=== PATIENT | male | born 1965 | race Caucasian/White ===

== ENCOUNTER 2024-02-09 09:19 | Outpatient (CLI) | payer MEDICARE, SELFPAY ==
--- NOTE | ~2024-02-09 | XR_ITS ---
XR shoulder LT min 2V Ordering provider: Juan Pablo Land APRN History: . M25.512 - Pain in left shoulder X 5+ YRS . Comparison: None. FINDINGS: BONES: No acute fracture or dislocation. The physis seen in the inferior glenohumeral. JOINT SPACES: The acromioclavicular joint is normal. The glenohumeral joint shows osteoarthritic tran ges. SOFT TISSUES: Normal. IMPRESSION: No acute osseous abnormality left shoulder. Severe osteoarthritic changes severe osteoarthritic changes of the glenohumeral joint. Reviewed, dictated and finalized at location A.
== END 2024-02-09 09:20 | disposition home or self-care (01) ==
PROVIDERS: PCP Nurse Practitioner; Visit Provider Nurse Practitioner
DX: M25.512 Pain in left shoulder (principal); M19.012 Primary osteoarthritis, left shoulder
CPT/HCPCS: 73030

== ENCOUNTER 2024-02-16 09:36 | Outpatient (CLI) | payer MEDICARE, SELFPAY ==
--- NOTE | ~2024-02-16 | CT_ITS ---
CT brain wo con Ordering provider: Juan Pablo Land APRN History: 59 years Male with . R56.9 - Unspecified convulsions . Comparison: None. Technique: CT of the head without contrast. Radiation reduction technique utilized.The dose-length product was 681mGy. FINDINGS: BRAIN PARENCHYMA AND CSF SPACES: Hypodensity seen in the anterior limb of the right internal capsule extending to the external capsule which is most likely chronic. Further evaluation with MRI is advis ed.. Encephalomalacia in the left frontal/parietal area most likely postoperative. Lacunar infarcts i n the basal ganglia most likely chronic No midline shift, mass effect or hemorrhage. The brain paren chyma and CSF spaces are otherwise normal. VISUALIZED PARANASAL SINUSES: Well aerated. MASTOIDS: Well aerated. BONES: Postoperative changes in the left parietal bone otherwise., The bones appear intact. SOFT TISSUES: Visualized nasopharynx is normal. Superficial soft tissues are normal. IMPRESSION: No acute intracranial findings. Left frontoparietal encephalomalacia likely postoperative. Hypodensity in the right anterior internal capsule extending to the external capsule most likely tenant coordinator sophy. Reviewed, dictated and finalized at location A. IMPRESSION: No acute intracranial findings. Left frontoparietal encephalomalacia likely postoperative. Hypodensity in the right anterior internal capsule extending to the external ca psule most likely chronic.
== END 2024-02-16 09:37 | disposition home or self-care (01) ==
PROVIDERS: PCP Nurse Practitioner; Visit Provider Nurse Practitioner
DX: R56.9 Unspecified convulsions (principal); Z98.890 Other specified postprocedural states; Z86.73 Personal history of transient ischemic attack (TIA), and cerebral infarction without residual deficits
CPT/HCPCS: 70450

== ENCOUNTER 2025-05-08 10:39 | Outpatient (CLI) | payer MEDICARE, SELFPAY ==
--- NOTE | ~2025-05-08 | XR_ITS ---
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 Technique: 3 view. Findings: Bowel gas pattern unremarkable. No obstruction. No free air. No abnormal calcifications No acute osseous abnormality. Impression: 1. No acute abnormality. Reviewed, dictated and finalized at location P. SSING PRESS OPERATOR APPRENTICE Impression: 1. No acute abnormality.
== END 2025-05-08 10:40 | disposition home or self-care (01) ==
LOC: MICIMG 10:42
PROVIDERS: PCP Nurse Practitioner; Visit Provider Nurse Practitioner
DX: R10.A0 Flank pain, unspecified side (principal)
CPT/HCPCS: 74018